=== PATIENT | male | born 1995 | race Caucasian/White ===

== ENCOUNTER 2020-07-15 16:07 | Emergency (ER) | payer OTHER ==
[~2020-07-15] VITALS: Ht 182.9 cm; Wt 95.3 kg
[2020-07-15 16:51] VITALS: BP 152/77
== END 2020-07-15 16:51 | disposition home or self-care (01) ==
LOC: M.ERS 16:07
DX: S61.412A Laceration without foreign body of left hand, initial encounter (principal); W26.8XXA Contact with other sharp object(s), not elsewhere classified, initial encounter; Y93.89 Activity, other specified; Y92.89 Other specified places as the place of occurrence of the external cause; Y99.8 Other external cause status

== ENCOUNTER 2020-07-22 10:53 | Emergency (ER) | payer OTHER ==
[~2020-07-22] VITALS: Ht 182.9 cm; Wt 97.5 kg
[2020-07-22] MEDS ORDERED: KEFLEX500 M1 PO (11:13)
[2020-07-22 11:21] VITALS: BP 149/101
== END 2020-07-22 11:23 | disposition home or self-care (01) ==
LOC: M.ERS 10:53
DX: S61.412D Laceration without foreign body of left hand, subsequent encounter (principal); W31.89XD Contact with other specified machinery, subsequent encounter

== ENCOUNTER → 2020-07-26 | Emergency (ER) | payer OTHER ==
[~2020-07-26] VITALS: Ht 180.3 cm; Wt 79.4 kg
[~2020-07-26] MED LIST: KEFLEX500 M1 PO
[2020-07-26 13:07] VITALS: BP 150/75
== END ==
LOC: M.ERS 12:34
DX: S61.412D Laceration without foreign body of left hand, subsequent encounter (principal); X58.XXXD Exposure to other specified factors, subsequent encounter

== ENCOUNTER 2020-11-17 18:31 | Emergency (ER) | payer OTHER ==
[~2020-11-17] VITALS: Ht 182.9 cm; Wt 97.5 kg
[2020-11-17] MEDS ORDERED: CEPHALEXIN500 MG PO (20:49)
== END 2020-11-17 20:51 | disposition home or self-care (01) ==
LOC: M.ERS 18:31
DX: S61.211A Laceration without foreign body of left index finger without damage to nail, initial encounter (principal); W26.0XXA Contact with knife, initial encounter; Y93.89 Activity, other specified; Y92.89 Other specified places as the place of occurrence of the external cause; Y99.8 Other external cause status